=== PATIENT | male | born 1990 | race American Indian/Alaskan Native ===

== ENCOUNTER 2021-08-23 14:21 | Emergency (ER) | payer SELFPAY ==
--- NOTE | 2021-08-23 20:05 | Emergency Department Report ---
ED Male HPI - General Chief complaint: Urogenital-Male Stated complaint: BOIL Source: patient Mode of arrival: Ambulatory Limitations: No Limitations - History of Present Illness Initial comments: Patient is a 31-year-old -[place] male with no past medical history presents to the ED with complaint of acute onset persistent painful ulcerated vesicular lesions on his penis for the last 1 week. Patient states that in the last 3 days he noticed that the lesions were swelling and that the tip of his penis was getting more swollen with mild pain. Patient states that the last time he had sexual intercourse was over 2 weeks ago and that it was unprotected. Patient denies penile discharge, dysuria, urinary frequency and urgency, testicular pain, hematuria, low back pain, abdominal pain, fever, chills, nausea and vomiting. MD Complaint: other (Penile painful rashes) -: Sudden, week(s) (1) Location: penis Radiation: none Severity: mild Severity scale (0 -10): 2 Quality: dull Consistency: constant Improves with: none Worsens with: none denies other symptoms, rash (Ulcerated penile rashes). denies: discharge, s welling, urinary retention, blood in urine, fever, nausea/vomiting, incontinence - Related Data Sexually active: Yes Previous Rx's Medication Instructions Recorded Last Taken Type Acyclovir 400 mg PO Q8H #30 tab 08/23/21 Unknown Rx Doxycycline Hyclate 100 mg PO Q12H #28 cap 08/23/21 Unknown Rx Allergies Allergy/AdvReac Type Severity Reaction Status Date / Time No Known Allergies Allergy Unverified 08/23/21 15:07 ED Review of Systems ROS: Stated complaint: BOIL Other details as noted in HPI Constitutional: denies: chills, fever Eyes: denies: eye pain, eye discharge, vision change ENT: denies: ear pain, throat pain Respiratory: denies: cough, shortness of breath, wheezing Cardiovascular: denies: chest pain, palpitations Endocrine: no symptoms reported Gastrointestinal: denies: abdominal pain, nausea, diarrhea Genitourinary: denies: urgency, dysuria Musculoskeletal: denies: back pain, joint swelling, arthralgia Skin: rash (Mildly ulcerated nontender penile rashes and swelling), lesions. denies: change in color, change in hair/nails, pruritus, other Neurological: denies: headache, weakness, paresthesias Psychiatric: denies: anxiety, depression Hematological/Lymphatic: denies: easy bleeding, easy bruising ED Past Medical Hx - Medications Home Medications: Home Medications Medication Instructions Recorded Confirmed Last Taken Type Acyclovir 400 mg PO Q8H #30 tab 08/23/21 Unknown Rx Doxycycline Hyclate 100 mg PO Q12H #28 cap 08/23/21 Unknown Rx ED Physical Exam - General Limitations: No Limitations General appearance: alert, in no apparent distress - Head Head exam: Present: atraumatic, normocephalic, normal inspection - Eye Eye exam: Present: normal appearance, PERRL, EOMI Pupils: Present: normal accommodation - ENT ENT exam: Present: normal exam, normal orophraynx, mucous membranes moist, TM's normal bilaterally, normal external ear exam - Neck Neck exam: Present: normal inspection, full ROM. Absent: tenderness - Respiratory Respiratory exam: Present: normal lung sounds bilaterally. Absent: respiratory distress, wheezes, rales, rhonchi, chest wall tenderness, accessory muscle use, other - Cardiovascular Cardiovascular Exam: Present: regular rate, normal rhythm, normal heart sounds. Absent: systolic murmur, diastolic murmur, rubs, gallop - GI/Abdominal GI/Abdominal exam: Present: soft, normal bowel sounds. Absent: tenderness, guarding, rebound, hyperactive bowel sounds, hypoactive bowel sounds, organom egaly - exam: Present: normal inspection, circumcision External exam: Present: lesions (Mild ulcerated lesions the penile shaft with no tenderness), other (Male parts technician Mr. Zheng present as residence counselor) - Extremities Exam Extremities exam: Present: normal inspection, full ROM, normal capillary refill. Absent: tenderness - Back Exam Back exam: Present: normal inspection, full ROM. Absent: tenderness, CVA tenderness (R), CVA tenderness (L), muscle spasm, paraspinal tenderness, vertebral tenderness, rash noted - Neurological Exam Neurological exam: Present: alert, oriented X3, CN II-XII intact, normal gait, reflexes normal - Psychiatric Psychiatric exam: Present: normal affect, normal mood, anxious - Skin Skin exam: Present: warm, dry, intact, normal color, rash (Mild ulcerated nontender vesicular lesions in the penile shaft), vesicles. Absent: erythema, urticaria, petechiae, pallor, ecchymosis ED Course Vital Signs 08/23/21 08/23/21 15:10 21:39 Temperature 98.3 F Pulse Rate 63 60 Respiratory 18 12 Rate Blood Pressure 142/79 109/79 [Right] O2 Sat by Pulse 100 99 Oximetry ED Medical Decision Making - Medical Decision Making This is a 31-year-old -[place] male with no past medical history presents to the ED with complaint of acute onset persistent painful ulcerated vesicular lesions on his penis for the last 1 week. Patient states that in the last 3 days he noticed that the lesions were swelling and that the tip of his penis was getting more swollen with mild pain. Patient states that the last time he had sexual intercourse was over 2 weeks ago and that it was unprotected. In the ED, patient is alert and oriented x3 and is not in any distress. Lab test results were reviewed and are all nonactionable for a negative RPR test. Based on the history and physical exam findings, the patient will discharge home on acyclovir for suspected genital herpes. Patient was discharged home on medications and advised to follow-up at the [facility] for further STD testing including HIV. Patient was advised return to the ED immediately if symptoms get worse. - Differential Diagnosis STD; Genital herpes; Syphilitic lesions; Critical care attestation.: If time is entered above; I have spent that time in minutes in the direct care of this critically ill patient, excluding procedure time. ED Disposition Clinical Impression: Lesion of penis, Herpes genitalis in men Disposition: HOME / SELF CARE / HOMELESS Is pt being admited?: No Does the pt Need Aspirin: No Condition: Stable Instructions: Genital Herpes, Viral Illness, Adult Additional Instructions: All lab test results were reviewed and are all nonactionable. Patient was discharged home on medications for suspected genital herpes. Patient was o therwise advised to follow-up with the [facility] for HIV testing. Patient was advised to return to the ED immediately if symptoms get worse. Prescriptions: Acyclovir 400 mg PO Q8H #30 tab Doxycycline Hyclate 100 mg PO Q12H #28 cap Referrals: SARKIS COLBERT MD [Other] - 3-5 Days [facility] [Outside] - 7-10 days Time of Disposition: 20:05 Print Language: FAROESE
[2021-08-23 21:40] VITALS: BP 109/79
== END 2021-08-23 21:41 | disposition home or self-care (01) ==
LOC: ED 14:21
DX: A60.00 Herpesviral infection of urogenital system, unspecified (principal); N48.89 Other specified disorders of penis; Z79.899 Other long term (current) drug therapy
CPT/HCPCS: 36415; 86592; 99283